=== PATIENT | female | born 1970 | race Caucasian/White ===

== ENCOUNTER 2016-07-01 21:08 | Emergency (ER) | payer OTHER ==
[~2016-07-01] VITALS: Ht 165.1 cm; Wt 83.9 kg
[2016-07-01 21:08] VITALS: BP 181/102; PULSE 84; RESP 20; TEMP 98.1; O2SAT 96
[~2016-07-01 21:08] MED LIST: ALBU8.5H8 INH; AMLO5TAB4 PO; ASPI325T2 PO; ASPI81TA2 PO; CAT.1 PO; CHOL100053 PO; CIPR-260 PO; DOXE10CA2 PO; ERGO500043 PO; GLIP10TA11 PO; GLIP5TAB13 PO; HYDR-1189 PO; HYDR-4100 PO; HYDR2TAB34 PO; HYG25 PO; IBUP-1480 PO; INSU100V26 SUBCUT; INSU100V32 SUBCUT; INSU100V9 SQ; INSU100V9 SUBCUT; LINA5TAB2 PO; LIP40 PO; LISI-600 PO; LISI10TA5 PO; LORA-258 PO; MELO-271 PO; METF-305 PO; METF1000 PO; METO100T PO; NITSL SL; NORT10CA PO; NPH,100V SUBCUT; ONDA4TAB22 PO; ONDA4TAB5 PO; POTA20TA34 PO; SIMV40TA2 PO; SITA100T7 PO; SITA50TA3 PO; TAMIFLU PO; VENL25TA4 PO; [UNRECOGNIZED DRUG - CODE] PO; atenolol
--- NOTE | 2016-07-01 21:08 | NUR ---
PT IN WAITING ROOM AWAITING AVAILABLE BED. STABLE.
--- NOTE | 2016-07-01 22:00 | NUR ---
Pt left ER stated "I feel fine' Patient left without being seen.
== END 2016-07-01 22:00 | disposition left against medical advice (07) ==
LOC: SED 21:08
DX: H93.8X1 Other specified disorders of right ear (principal); H53.8 Other visual disturbances; R51 Headache; Z53.21 Procedure and treatment not carried out due to patient leaving prior to being seen by health care provider

== ENCOUNTER 2016-10-04 23:37 | Emergency (ER) | payer OTHER ==
[~2016-10-04] VITALS: Ht 165.1 cm; Wt 83.9 kg
[~2016-10-04 23:37] MED LIST changes: -AMLO5TAB4 PO; -ASPI325T2 PO; -CHOL100053 PO; -CIPR-260 PO; -DOXE10CA2 PO; -GLIP5TAB13 PO; -HYDR-1189 PO; -HYDR2TAB34 PO; -HYG25 PO; -INSU100V26 SUBCUT; -INSU100V32 SUBCUT; -INSU100V9 SQ; -LISI10TA5 PO; -METF-305 PO; -NORT10CA PO; -ONDA4TAB22 PO; -SIMV40TA2 PO; -SITA100T7 PO; -SITA50TA3 PO; -TAMIFLU PO; -[UNRECOGNIZED DRUG - CODE] PO; -atenolol
[2016-10-04 23:56] VITALS: BP_SYST 172
--- NOTE | 2016-10-05 01:39 | NUR ---
Patient to ER bed 8 to gown for evaluation. Side rails up. Report given to SKY DHALIWAL.
--- NOTE | 2016-10-05 01:45 | NUR ---
Patient AAO x4, ambulated to bed, c/o left rib pain 06/19. Patient states she tripped and fell onto concrete and landed on a "corner" injurying her left ribs. Denies shortness of breath, Left ribs tender to palpation. Denies chest pain, no acute distress noted. Will continue to monitor.
--- NOTE | 2016-10-05 01:50 | NUR ---
ABELINO Kiser at bedside examining patient.
[2016-10-05] MEDS ORDERED: LORazepam 2 MG/ML VIAL (FOR ER USE) IM ONE (02:00)
[2016-10-05] MEDS ORDERED: KETOROLAC TROMETHAMINE 60 MG/2 ML VIAL IM ONE (02:00)
[2016-10-05] MEDS ORDERED: HYDROcodone/ACETAMIN 5-325 MG TAB (NORCO/ VICODIN) PO ONE (03:15)
[2016-10-05 03:45] VITALS: BP_SYST 130
--- NOTE | 2016-10-05 03:45 | NUR ---
Patient given written and verbal discharge instructions and verbalizes understanding. ER MD discussed with patient the results and treatment provided. Patient in stable condition. ID arm band removed. Rx of Tramdol given. Patient educated on pain management and to follow up with PMD. Pain Scale 4/10 tolerable by patient, patient requesting to go home. Opportunity for questions provided and answered.
== END 2016-10-05 03:45 | disposition home or self-care (01) ==
LOC: SED 23:37
DX: S20.212A Contusion of left front wall of thorax, initial encounter (principal); I10 Essential (primary) hypertension; E11.40 Type 2 diabetes mellitus with diabetic neuropathy, unspecified; G43.909 Migraine, unspecified, not intractable, without status migrainosus; J44.9 Chronic obstructive pulmonary disease, unspecified; Z86.73 Personal history of transient ischemic attack (TIA), and cerebral infarction without residual deficits; W19.XXXA Unspecified fall, initial encounter; Y93.89 Activity, other specified; Y92.89 Other specified places as the place of occurrence of the external cause; Y99.8 Other external cause status
CPT/HCPCS: 71100; 96372; 99284; J1885; J2060

== ENCOUNTER 2017-02-19 12:29 | Emergency (ER) | payer OTHER ==
[2017-02-19] MEDS ORDERED: NITROGLYCERIN 0.4 MG TAB.SUBL SL ONE (14:03)
[2017-02-19] MEDS ORDERED: ASPIRIN 325 MG TABLET ONE (14:03)
[2017-02-19] MEDS ORDERED: NITROGLYCERIN 1 INCH (GM) OINT. ONE (14:03)
[2017-02-19] MEDS ORDERED: ACETAMINOPHEN 325 MG TABLET ONE (14:11)
[2017-02-19] MEDS ORDERED: MORPHINE SULFATE 10 MG/ML VIAL ONE (18:11)
[2017-02-20 12:54] LABS: CALCIUM 8.8 mg/dL (8.4-11.0); CREATININE 0.71 mg/dL (0.55-1.30); POTASSIUM 3.9 mmol/L (3.5-5.1); TOTAL BILIRUBIN 0.7 mg/dL (0.0-1.0)
[2017-02-20 12:55] LABS: ALBUMIN 3.3 g/dL (3.4-4.8)
[2017-02-20 16:37] LABS: HEMATOCRIT 47.1 % (36-48); HEMOGLOBIN 15.6 g/dL (12.0-16.0); LYMPHOCYTES % (AUTO) 9.1 % (20.5-51.5); MEAN CORPUSCULAR HEMOGLOBIN 29 pg (27-31); MEAN CORPUSCULAR HGB CONC 33 % (32-36); MEAN CORPUSCULAR VOLUME 87 fL (79.0-98.0); NEUTROPHILS % (AUTO) 81.6 % (40.0-70.0); PLATELET COUNT (AUTO) 161 K/uL (130-430); RED BLOOD CELL COUNT(AUTO) 5.44 MIL/uL (4.2-6.2); RED CELL DISTRIBUTION WIDTH 11.9 % (9.0-15.0); WHITE BLOOD COUNT (AUTO) 9.4 K/uL (4.8-10.8)
[2017-02-20 16:38] LABS: BASOPHILS % (AUTO) 1.4 % (0.0-2.0); EOSINOPHILS # (AUTO) 0.1 K/uL (0.0-0.4); EOSINOPHILS % (AUTO) 1.1 % (0.0-4.0); LYMPHOCYTES # (AUTO) 0.9 K/uL (1.0-5.5); MONOCYTES # (AUTO) 0.6 K/uL (0.0-1.0); MONOCYTES % (AUTO) 6.8 % (1.7-9.3); NEUTROPHILS # (AUTO) 7.7 K/uL (1.8-7.7)
[2017-02-20 16:39] LABS: BASOPHILS # (AUTO) 0.1 K/uL (0.0-0.2)
== END 2017-02-19 21:01 | disposition short-term general hospital (02) ==
LOC: SED 12:29
DX: I21.4 Non-ST elevation (NSTEMI) myocardial infarction (principal); E11.65 Type 2 diabetes mellitus with hyperglycemia; I10 Essential (primary) hypertension; I16.0 Hypertensive urgency
CPT/HCPCS: 36415; 71045; 80053; 84484; 85025; 93005; 99291; J2270

== ENCOUNTER 2017-04-08 14:16 | Inpatient (IN) | payer OTHER ==
[~2017-04-08] VITALS: Ht 165.1 cm; Wt 81.0 kg
[2017-04-08 14:25] VITALS: BP_SYST 172
[2017-04-08] MEDS ORDERED: MORPHINE 4 MG/ML INJ. SYRINGE IVP ONE ×2 (14:30→15:45)
[2017-04-08] MEDS ORDERED: ONDANSETRON HCL 4 MG/2 ML VIAL IVP ONE ×2 (14:30→21:30)
[2017-04-08] MEDS ORDERED: KETOROLAC TROMETHAMINE 30 MG VIAL IVP ONE (14:30)
[2017-04-08] MEDS ORDERED: NACL 0.9% 1,000 ML IV ONE ×2 (15:00→16:30)
[2017-04-08 15:02] LABS: BASOPHILS # (AUTO) 0.2 K/uL (0.0-0.2); BASOPHILS % (AUTO) 2.3 % (0.0-2.0); EOSINOPHILS # (AUTO) 0.1 K/uL (0.0-0.4); EOSINOPHILS % (AUTO) 0.7 % (0.0-4.0); HEMATOCRIT 43.2 % (36-48); HEMOGLOBIN 14.3 g/dL (12.0-16.0); LYMPHOCYTES % (AUTO) 13.6 % (20.5-51.5); MEAN CORPUSCULAR HEMOGLOBIN 28 pg (27-31); MEAN CORPUSCULAR HGB CONC 33 % (32-36); MEAN CORPUSCULAR VOLUME 86 fL (79.0-98.0); MONOCYTES # (AUTO) 0.4 K/uL (0.0-1.0); NEUTROPHILS # (AUTO) 5.7 K/uL (1.8-7.7); NEUTROPHILS % (AUTO) 78.4 % (40.0-70.0); PLATELET COUNT (AUTO) 208 K/uL (130-430); RED BLOOD CELL COUNT(AUTO) 5.05 MIL/uL (4.2-6.2); RED CELL DISTRIBUTION WIDTH 12.3 % (9.0-15.0); WHITE BLOOD COUNT (AUTO) 7.4 K/uL (4.8-10.8)
[2017-04-08] MEDS ORDERED: ACETAMINOPHEN 500 MG TABLET PO ONE (15:15)
[2017-04-08 15:38] LABS: BILIRUBIN,URINE NEGATIVE (NEGATIVE); CLARITY/URINE SL HAZY (CLEAR); COLOR,URINE YELLOW (YELLOW); GLUCOSE,URINE 3+ (NEGATIVE); KETONES,URINE TRACE (NEGATIVE); LEUKOCYTE ESTERASE ,URINE NEGATIVE (NEGATIVE); NITRITE, URINE NEGATIVE (NEGATIVE); PH,URINE 6.5 (5.0-8.0); PROTEIN URINE 2+ (NEGATIVE)
[2017-04-08 15:50] LABS: CALCIUM 8.6 mg/dL (8.4-11.0); CREATININE 0.76 mg/dL (0.55-1.30); POTASSIUM 3.7 mmol/L (3.5-5.1)
[2017-04-08 15:53] LABS: BLOOD, URINE TRACE (NEGATIVE)
[2017-04-08 15:55] LABS: ALBUMIN 2.9 g/dL (3.4-4.8); TOTAL BILIRUBIN 0.6 mg/dL (0.0-1.0)
[2017-04-08 16:00] LABS: BACTERIA,URINE FEW /HPF (None Seen); WBC,URINE 20-50 /HPF (0-3)
[2017-04-08 16:01] LABS: FINE GRANULAR CASTS,URINE 0-10 /LPF (None Seen); MUCUS,URINE None Seen /LPF (None Seen)
[2017-04-08] MEDS ORDERED: cefTRIAXone 1 GM IVPB PREMIX 50 ML IV ONE ×2 (16:15→23:45)
[2017-04-08] MEDS ORDERED: DIPHENHYDRAMINE INJ 50 MG/ML VIAL IVP ONE (16:30)
[2017-04-08] MEDS ORDERED: NACL 0.9% 500 ML IV ONE (16:30)
[2017-04-08] MEDS ORDERED: INSULIN REGULAR, HUMAN 100 UNITS/ML, 10 ML VIAL (novoLIN R) IV PRN (16:30)
[2017-04-08] MEDS ORDERED: oxyCODONE HCL 10 MG TAB.ER.12H PO ONE (17:15)
[2017-04-08] MEDS ORDERED: MEPERIDINE HCL/PF 25 MG/ML DISP.SYRIN IM ONE (18:45)
[2017-04-08] MEDS ORDERED: AMLO2.5T2 PO (21:00)
[2017-04-08] MEDS ORDERED: METO-442 PO (21:00)
[2017-04-08] MEDS ORDERED: HYDR-4100 PO (21:00)
[2017-04-08] MEDS ORDERED: ONDANSETRON HCL 4 MG/2 ML VIAL ONE (21:28)
[2017-04-08 22:10] VITALS: BP_SYST 171
[2017-04-08] MEDS ORDERED: DEXTROSE 50% JECT 50 ML DISP.SYRIN IVP PRN (22:15)
[2017-04-08] MEDS ORDERED: HYDROcodone/ACETAMIN 10-325 MG TAB PO PRN (22:15)
[2017-04-08] MEDS: INSULIN REGULAR, HUMAN 100 UNITS/ML, 10 ML VIAL (novoLIN R) SUBCUT PRN (22:43)
[2017-04-08] MEDS ORDERED: ONDANSETRON HCL 4 MG/2 ML VIAL IVP PRN (23:00)
[2017-04-08] MEDS ORDERED: TAMSULOSIN HCL 0.4 MG CAP PO ONE (23:15)
[2017-04-08] MEDS ORDERED: cefTRIAXone 1 GM in D5W 50 ML IV ONE (23:30)
[2017-04-09] VITALS (7 sets, daily range): BP systolic 118–164
[2017-04-09] MEDS ORDERED: amLODIPine BESYLATE 10 MG TABLET PO ONE
[2017-04-09] MEDS ORDERED: METOPROLOL TARTRATE 50 MG TABLET PO ONE
[2017-04-09] MEDS: KETOROLAC TROMETHAMINE 15 MG VIAL IVP PRN ×2 (00:21→20:25)
[2017-04-09] MEDS: HYDROcodone/ACETAMIN 10-325 MG TAB PO PRN ×4 (03:33→17:55)
[2017-04-09] MEDS: DIPHENHYDRAMINE INJ 50 MG/ML VIAL IVP PRN ×3 (03:34→18:22)
[2017-04-09] MEDS: INSULIN REGULAR, HUMAN 100 UNITS/ML, 10 ML VIAL (novoLIN R) SUBCUT PRN ×4 (06:31→20:28)
[2017-04-09 06:59] LABS: BASOPHILS % (AUTO) 0.4 % (0.0-2.0); EOSINOPHILS % (AUTO) 0.4 % (0.0-4.0); HEMATOCRIT 38.8 % (36-48); HEMOGLOBIN 13.3 g/dL (12.0-16.0); LYMPHOCYTES # (AUTO) 1.4 K/uL (1.0-5.5); LYMPHOCYTES % (AUTO) 18.8 % (20.5-51.5); MEAN CORPUSCULAR HEMOGLOBIN 30 pg (27-31); MEAN CORPUSCULAR HGB CONC 34 % (32-36); MEAN CORPUSCULAR VOLUME 86 fL (79.0-98.0); MONOCYTES # (AUTO) 0.9 K/uL (0.0-1.0); MONOCYTES % (AUTO) 12.1 % (1.7-9.3); NEUTROPHILS # (AUTO) 5.1 K/uL (1.8-7.7); NEUTROPHILS % (AUTO) 68.3 % (40.0-70.0); PLATELET COUNT (AUTO) 182 K/uL (130-430); RED CELL DISTRIBUTION WIDTH 12.3 % (9.0-15.0); WHITE BLOOD COUNT (AUTO) 7.4 K/uL (4.8-10.8)
[2017-04-09 08:07] LABS: ALBUMIN 2.6 g/dL (3.4-4.8); CALCIUM 8.3 mg/dL (8.4-11.0); CREATININE 0.64 mg/dL (0.55-1.30); POTASSIUM 3.4 mmol/L (3.5-5.1); TOTAL BILIRUBIN 0.7 mg/dL (0.0-1.0)
[2017-04-09] MEDS: METOPROLOL TARTRATE 50 MG TABLET PO SCH ×2 (08:20→20:20)
[2017-04-09] MEDS: TAMSULOSIN HCL 0.4 MG CAP PO SCH ×2 (08:20→20:21)
[2017-04-09] MEDS: metFORMIN HCL 500 MG TABLET PO SCH ×2 (08:27→18:22)
[2017-04-09] MEDS ORDERED: LISINOPRIL 20 MG TABLET PO SCH (09:00)
[2017-04-09] MEDS ORDERED: ASPIRIN 81 MG TAB.CHEW PO SCH (09:00)
[2017-04-09] MEDS: amLODIPine BESYLATE 5 MG TABLET PO SCH ×2 (09:50→20:26)
[2017-04-09] MEDS ORDERED: POTASSIUM CHLORIDE 20 MEQ TAB.PRT.SR PO ONE (14:00)
[2017-04-09] MEDS ORDERED: cefTRIAXone 1 GM in D5W 50 ML IV SCH (21:00)
[2017-04-09] MEDS ORDERED: ATORVASTATIN 20 MG TABLET PO SCH (21:00)
[2017-04-09] MEDS ORDERED: INSULIN NPH 100 UNITS/ML 10 ML VIAL SUBCUT SCH (21:00)
[2017-04-09] MEDS ORDERED: ENOXAPARIN SODIUM 40 MG/0.4 ML SYRINGE SUBCUT SCH (21:00)
== END 2017-04-09 22:07 | disposition short-term general hospital (02) | DRG 872 ==
LOC: SED 14:16 → SMU 20:47
PROVIDERS: ADMIT Internal Medicine; ATTEND Internal Medicine
DX: A41.9 Sepsis, unspecified organism (principal); E44.0 Moderate protein-calorie malnutrition; E11.40 Type 2 diabetes mellitus with diabetic neuropathy, unspecified; N10 Acute pyelonephritis; I10 Essential (primary) hypertension; J44.9 Chronic obstructive pulmonary disease, unspecified; R19.09 Other intra-abdominal and pelvic swelling, mass and lump; E78.5 Hyperlipidemia, unspecified; Z79.4 Long term (current) use of insulin; Z87.442 Personal history of urinary calculi; Z90.710 Acquired absence of both cervix and uterus; Z88.8 Allergy status to other drugs, medicaments and biological substances; Z79.82 Long term (current) use of aspirin; Z79.899 Other long term (current) drug therapy; Z86.73 Personal history of transient ischemic attack (TIA), and cerebral infarction without residual deficits; Z68.29 Body mass index [BMI] 29.0-29.9, adult
CPT/HCPCS: 36415; 80053; 81000-TC; 82962; 83036; 83605; 83690-TC; 85025; 87040-TC; 87086; 87186-TC; 96361; 96365; 96375; 99285; J0696; J1200; J1650; J1815; J1885; J1956; J2175; J2270; J2405; J7030; J7040; J7060

== ENCOUNTER 2017-07-04 22:53 | Emergency (ER) | payer OTHER ==
[~2017-07-04] VITALS: Ht 165.1 cm; Wt 83.9 kg
[~2017-07-04 22:53] MED LIST changes: -ALBU8.5H8 INH; +AMLO2.5T2 PO; -CAT.1 PO; -ERGO500043 PO; -GLIP10TA11 PO; -IBUP-1480 PO; -INSU100V9 SUBCUT; -LINA5TAB2 PO; -LORA-258 PO; -MELO-271 PO; +METO-442 PO; -METO100T PO; -NITSL SL; -ONDA4TAB5 PO; -POTA20TA34 PO; -VENL25TA4 PO
[2017-07-04 22:57] VITALS: BP_SYST 209
[2017-07-04] MEDS ORDERED: NACL 0.9% 1,000 ML IV ONE (23:10)
[2017-07-04] MEDS ORDERED: KETOROLAC TROMETHAMINE 30 MG VIAL IVP ONE (23:15)
[2017-07-04 23:28] LABS: BILIRUBIN,URINE NEGATIVE (NEGATIVE); BLOOD, URINE NEGATIVE (NEGATIVE); CLARITY/URINE CLEAR (CLEAR); COLOR,URINE YELLOW (YELLOW); GLUCOSE,URINE 3+ (NEGATIVE); KETONES,URINE NEGATIVE (NEGATIVE); LEUKOCYTE ESTERASE ,URINE NEGATIVE (NEGATIVE); NITRITE, URINE NEGATIVE (NEGATIVE); PROTEIN URINE NEGATIVE (NEGATIVE); UROBILINOGEN,URINE 0.2 (0.2-1.0)
[2017-07-04 23:39] LABS: BACTERIA,URINE FEW /HPF (None Seen); RBC,URINE 0-3 /HPF (0-3); WBC,URINE 0-3 /HPF (0-3)
[2017-07-04] MEDS ORDERED: ONDANSETRON HCL 4 MG/2 ML VIAL IVP ONE (23:45)
[2017-07-04 23:46] LABS: BASOPHILS # (AUTO) 0.1 K/uL (0.0-0.2); BASOPHILS % (AUTO) 1.1 % (0.0-2.0); EOSINOPHILS # (AUTO) 0.3 K/uL (0.0-0.4); EOSINOPHILS % (AUTO) 3.1 % (0.0-4.0); HEMATOCRIT 43.4 % (36-48); HEMOGLOBIN 15.2 g/dL (12.0-16.0); LYMPHOCYTES # (AUTO) 3.6 K/uL (1.0-5.5); LYMPHOCYTES % (AUTO) 45.1 % (20.5-51.5); MEAN CORPUSCULAR HEMOGLOBIN 30 pg (27-31); MEAN CORPUSCULAR HGB CONC 35 % (32-36); MEAN CORPUSCULAR VOLUME 86 fL (79.0-98.0); MONOCYTES # (AUTO) 0.6 K/uL (0.0-1.0); MONOCYTES % (AUTO) 7.6 % (1.7-9.3); NEUTROPHILS # (AUTO) 3.6 K/uL (1.8-7.7); NEUTROPHILS % (AUTO) 43.1 % (40.0-70.0); PLATELET COUNT (AUTO) 179 K/uL (130-430); RED BLOOD CELL COUNT(AUTO) 5.07 MIL/uL (4.2-6.2); RED CELL DISTRIBUTION WIDTH 11.9 % (9.0-15.0); WHITE BLOOD COUNT (AUTO) 8.2 K/uL (4.8-10.8)
[2017-07-05] MEDS ORDERED: MORPHINE 4 MG/ML INJ. SYRINGE IVP ONE (00:45)
[2017-07-05 00:50] LABS: POTASSIUM 3.8 mmol/L (3.5-5.1)
[2017-07-05 00:51] LABS: CALCIUM 8.5 mg/dL (8.4-11.0); CREATININE 0.74 mg/dL (0.55-1.30)
[2017-07-05 00:56] LABS: ALBUMIN 3.1 g/dL (3.4-4.8); TOTAL BILIRUBIN 0.5 mg/dL (0.0-1.0)
[2017-07-05 01:30] VITALS: BP_SYST 163
== END 2017-07-05 01:30 | disposition home or self-care (01) ==
LOC: SED 22:53
DX: E11.65 Type 2 diabetes mellitus with hyperglycemia (principal); R10.9 Unspecified abdominal pain; J44.9 Chronic obstructive pulmonary disease, unspecified; I10 Essential (primary) hypertension; E11.40 Type 2 diabetes mellitus with diabetic neuropathy, unspecified; Z86.73 Personal history of transient ischemic attack (TIA), and cerebral infarction without residual deficits; Z87.442 Personal history of urinary calculi; Z79.82 Long term (current) use of aspirin; Z79.4 Long term (current) use of insulin; Z88.8 Allergy status to other drugs, medicaments and biological substances; Z79.899 Other long term (current) drug therapy; Z90.710 Acquired absence of both cervix and uterus
CPT/HCPCS: 36415; 74176; 80053; 81000; 81025; 85025; 96361; 96374; 96375; 99285; J1885; J2270; J2405; J7030

== ENCOUNTER 2018-03-24 19:43 | Emergency (ER) | payer OTHER ==
[~2018-03-24] VITALS: Ht 165.1 cm; Wt 79.4 kg
[~2018-03-24 19:43] MED LIST changes: +ASPI-1155 PO; -ASPI81TA2 PO
[2018-03-24 19:55] VITALS: BP_SYST 173
[2018-03-24] MEDS ORDERED: NOR10 PO (20:10)
[2018-03-24] MEDS ORDERED: LISI40TA4 PO (20:11)
[2018-03-24] MEDS ORDERED: METO-442 PO (20:12)
[2018-03-24] MEDS ORDERED: CHOL500037 PO (20:13)
[2018-03-24] MEDS ORDERED: POTA10TA15 PO (20:14)
[2018-03-24] MEDS ORDERED: NACL 0.9% 1,000 ML IV ONE (21:20)
[2018-03-24 21:30] LABS: BILIRUBIN,URINE NEGATIVE (NEGATIVE); BLOOD, URINE NEGATIVE (NEGATIVE); CLARITY/URINE CLEAR (CLEAR); COLOR,URINE YELLOW (YELLOW); GLUCOSE,URINE 3+ (NEGATIVE); KETONES,URINE NEGATIVE (NEGATIVE); LEUKOCYTE ESTERASE ,URINE NEGATIVE (NEGATIVE); NITRITE, URINE NEGATIVE (NEGATIVE); PH,URINE 6.5 (5.0-8.0); PROTEIN URINE NEGATIVE (NEGATIVE); UROBILINOGEN,URINE 0.2 (0.2-1.0)
[2018-03-24] MEDS ORDERED: KETOROLAC TROMETHAMINE 30 MG VIAL IVP ONE (21:30)
[2018-03-24] MEDS ORDERED: ONDANSETRON HCL 4 MG/2 ML VIAL IVP ONE (21:30)
[2018-03-24] MEDS ORDERED: DIPHENHYDRAMINE INJ 50 MG/ML VIAL IVP ONE ×2 (21:30→23:30)
[2018-03-24 21:35] LABS: BACTERIA,URINE FEW /HPF (None Seen); RBC,URINE 0-3 /HPF (0-3); WBC,URINE 0-3 /HPF (0-3)
[2018-03-24 21:53] LABS: CALCIUM 8.5 mg/dL (8.4-11.0); CREATININE 0.76 mg/dL (0.55-1.30); POTASSIUM 4.3 mmol/L (3.5-5.1)
[2018-03-24 21:54] LABS: ALBUMIN 3.1 g/dL (3.4-4.8); TOTAL BILIRUBIN 0.3 mg/dL (0.0-1.0)
[2018-03-24 21:55] LABS: HEMATOCRIT 42.3 % (36-48); HEMOGLOBIN 14.6 g/dL (12.0-16.0); MEAN CORPUSCULAR VOLUME 87 fL (79.0-98.0); RED BLOOD CELL COUNT(AUTO) 4.87 MIL/uL (4.2-6.2); WHITE BLOOD COUNT (AUTO) 8.8 K/uL (4.8-10.8)
[2018-03-24 21:56] LABS: MEAN CORPUSCULAR HEMOGLOBIN 30 pg (27-31); MEAN CORPUSCULAR HGB CONC 35 % (32-36); PLATELET COUNT (AUTO) 175 K/uL (130-430); RED CELL DISTRIBUTION WIDTH 12.9 % (9.0-15.0)
[2018-03-24 21:57] LABS: BASOPHILS # (AUTO) 0.1 K/uL (0.0-0.2); BASOPHILS % (AUTO) 1.1 % (0.0-2.0); EOSINOPHILS # (AUTO) 0.2 K/uL (0.0-0.4); EOSINOPHILS % (AUTO) 2.4 % (0.0-4.0); LYMPHOCYTES # (AUTO) 3.5 K/uL (1.0-5.5); LYMPHOCYTES % (AUTO) 39.6 % (20.5-51.5); MONOCYTES # (AUTO) 0.7 K/uL (0.0-1.0); MONOCYTES % (AUTO) 7.7 % (1.7-9.3); NEUTROPHILS # (AUTO) 4.3 K/uL (1.8-7.7); NEUTROPHILS % (AUTO) 49.2 % (40.0-70.0)
[2018-03-24] MEDS ORDERED: MORPHINE 4 MG/ML INJ. SYRINGE IVP ONE (23:30)
[2018-03-25] MEDS ORDERED: ONDANSETRON HCL 4 MG/2 ML VIAL IVP ONE (01:30)
[2018-03-25] MEDS ORDERED: MORPHINE 4 MG/ML INJ. SYRINGE IVP ONE (01:30)
[2018-03-25 02:15] VITALS: BP_SYST 136
== END 2018-03-25 02:15 | disposition home or self-care (01) ==
LOC: SED 19:43
DX: R10.31 Right lower quadrant pain (principal); E11.40 Type 2 diabetes mellitus with diabetic neuropathy, unspecified; J44.9 Chronic obstructive pulmonary disease, unspecified; I10 Essential (primary) hypertension; Z86.79 Personal history of other diseases of the circulatory system; Z86.73 Personal history of transient ischemic attack (TIA), and cerebral infarction without residual deficits; Z88.8 Allergy status to other drugs, medicaments and biological substances; Z79.82 Long term (current) use of aspirin; Z79.899 Other long term (current) drug therapy
CPT/HCPCS: 36415; 74176; 80053; 81000; 81025; 85025; 96374; 96375; 96376; 99284; J1200; J1885; J2270 ×2; J2405 ×2; J7030

== ENCOUNTER 2018-03-28 16:57 | Inpatient (IN) | payer OTHER ==
[~2018-03-28] VITALS: Ht 165.1 cm; Wt 79.4 kg
[~2018-03-28 16:57] MED LIST changes: -AMLO2.5T2 PO; +CHOL500037 PO; -LISI-600 PO; +LISI40TA4 PO; +NOR10 PO; +POTA10TA15 PO
[2018-03-28 17:05] VITALS: BP_SYST 186
[2018-03-28] MEDS ORDERED: NACL 0.9% 1,000 ML IV ONE (17:05)
[2018-03-28] MEDS ORDERED: MORPHINE 4 MG/ML INJ. SYRINGE IVP ONE (17:15)
[2018-03-28] MEDS ORDERED: ONDANSETRON HCL 4 MG/2 ML VIAL IVP ONE (17:15)
[2018-03-28] MEDS ORDERED: ASPIRIN 81 MG TAB.CHEW PO ONE (17:15)
[2018-03-28 17:45] LABS: BASOPHILS % (AUTO) 0.6 % (0.0-2.0); EOSINOPHILS # (AUTO) 0.2 K/uL (0.0-0.4); EOSINOPHILS % (AUTO) 2.6 % (0.0-4.0); HEMATOCRIT 44.9 % (36-48); HEMOGLOBIN 15.1 g/dL (12.0-16.0); LYMPHOCYTES % (AUTO) 29.4 % (20.5-51.5); MEAN CORPUSCULAR HEMOGLOBIN 29 pg (27-31); MEAN CORPUSCULAR HGB CONC 34 % (32-36); MEAN CORPUSCULAR VOLUME 87 fL (79.0-98.0); MONOCYTES # (AUTO) 0.5 K/uL (0.0-1.0); MONOCYTES % (AUTO) 7.7 % (1.7-9.3); NEUTROPHILS # (AUTO) 4.2 K/uL (1.8-7.7); NEUTROPHILS % (AUTO) 59.7 % (40.0-70.0); PLATELET COUNT (AUTO) 170 K/uL (130-430); RED BLOOD CELL COUNT(AUTO) 5.19 MIL/uL (4.2-6.2); RED CELL DISTRIBUTION WIDTH 12.4 % (9.0-15.0); WHITE BLOOD COUNT (AUTO) 6.9 K/uL (4.8-10.8)
[2018-03-28 17:46] LABS: CREATININE 0.85 mg/dL (0.55-1.30); POTASSIUM 3.8 mmol/L (3.5-5.1)
[2018-03-28 17:51] LABS: PROTHROMBIN TIME 10.5 SECS (9.5-12.5)
[2018-03-28 17:57] LABS: ALBUMIN 3.3 g/dL (3.4-4.8); TOTAL BILIRUBIN 0.5 mg/dL (0.0-1.0)
[2018-03-28] MEDS ORDERED: NACL 0.9% 2,000 ML IV ONE (18:00)
[2018-03-28] MEDS ORDERED: INSULIN REGULAR, HUMAN 10 UNITS/0.1 ML INJ IVP ONE (18:00)
[2018-03-28 18:01] LABS: BILIRUBIN,URINE NEGATIVE (NEGATIVE); BLOOD, URINE NEGATIVE (NEGATIVE); CLARITY/URINE CLEAR (CLEAR); COLOR,URINE YELLOW (YELLOW); GLUCOSE,URINE 3+ (NEGATIVE); KETONES,URINE NEGATIVE (NEGATIVE); LEUKOCYTE ESTERASE ,URINE NEGATIVE (NEGATIVE); NITRITE, URINE NEGATIVE (NEGATIVE); PROTEIN URINE NEGATIVE (NEGATIVE); UROBILINOGEN,URINE 0.2 (0.2-1.0)
[2018-03-28 18:06] LABS: CALCIUM 8.6 mg/dL (8.4-11.0)
[2018-03-28 18:25] LABS: BACTERIA,URINE FEW /HPF (None Seen); RBC,URINE NONE SEEN /HPF (0-3); WBC,URINE 0-3 /HPF (0-3)
[2018-03-28 18:26] LABS: MUCUS,URINE None Seen /LPF (None Seen); YEAST,URINE Few /HPF (None Seen)
[2018-03-28] MEDS ORDERED: DEXTROSE 50% JECT 50 ML DISP.SYRIN IVP PRN (19:15)
[2018-03-28] MEDS ORDERED: INSULIN LISPRO SLIDING SCALE 100 UNITS/ML VIAL (humaLOG) SUBCUT PRN (19:15)
[2018-03-28] MEDS ORDERED: cloNIDine HCL 0.1 MG TABLET PO ONE (19:30)
[2018-03-28] MEDS ORDERED: DOCUSATE SODIUM 100 MG CAPSULE PO PRN (19:30)
[2018-03-28] MEDS ORDERED: LORazepam 2 MG/ML VIAL IVP PRN (19:30)
[2018-03-28] MEDS ORDERED: HYDROcodone/ACETAMIN 7.5-325 MG TAB PO PRN (19:30)
[2018-03-28] MEDS ORDERED: ACETAMINOPHEN 325 MG TABLET PO PRN (19:30)
[2018-03-28] MEDS ORDERED: MILK OF MAGNESIA 30 ML UDC PO PRN (19:30)
[2018-03-28] MEDS ORDERED: ZOLPIDEM TARTRATE 5 MG TABLET PO PRN (19:30)
[2018-03-28] MEDS ORDERED: MUPIROCIN 2% TOPICAL OINTMENT 22 GM TP PRN (19:30)
[2018-03-28] MEDS ORDERED: NITROGLYCERIN 0.4 MG TAB.SUBL SL PRN (19:45)
[2018-03-28] MEDS ORDERED: cloNIDine HCL 0.1 MG TABLET PO PRN (19:45)
[2018-03-28 20:03] VITALS: BP_SYST 195
[2018-03-28 20:28] LABS: PHOSPHORUS 3.3 mg/dL (2.7-4.5); THYROID STIMULATING HORMONE 0.54 uIu/mL (0.34-4.82)
[2018-03-28 20:29] VITALS: BP_SYST 174
[2018-03-28 20:38] LABS: BARBITURATE, URINE NEGATIVE (NEG <=200); BENZODIAZEPINE, URINE NEGATIVE (NEG <=150); CANNABINOID, URINE NEGATIVE (NEG <=50); COCAINE, URINE NEGATIVE (NEG <=150); METHAMPHETAMINES SCREEN,URINE NEGATIVE (NEG <=500); OPIATE, URINE POSITIVE (NEG <=100); PHENCYCLIDINE SCREEN,URINE NEGATIVE (NEG <=25); UR TRICYCLIC ANTIDEPRESSANTS NEGATIVE (NEG <=300); URINE AMPHETAMINE NEGATIVE (NEG <=500); URINE METHADONE NEGATIVE (NEG <=200); URINE OXYCODONE SCREEN NEGATIVE (NEG <=100); URINE PROPOXYPHENE SCREEN NEGATIVE (NEG <=300)
[2018-03-28] MEDS ORDERED: METOPROLOL TARTRATE 25 MG TABLET PO SCH (21:00)
[2018-03-28] MEDS ORDERED: SIMVASTATIN 20 MG TABLET PO SCH (21:00)
[2018-03-28] MEDS: MORPHINE 4 MG/ML INJ. SYRINGE IVP PRN (21:14)
[2018-03-28] MEDS: ONDANSETRON HCL 4 MG/2 ML VIAL IVP PRN (21:21)
[2018-03-28] MEDS: NACL 0.9% 1,000 ML IV SCH (21:22)
[2018-03-28] MEDS: INSULIN ASPART 100 UNITS/ML, 10 ML VIAL (NovoLOG) SUBCUT PRN (22:19)
[2018-03-29 00:40] VITALS: BP_SYST 132
[2018-03-29] MEDS: ONDANSETRON HCL 4 MG/2 ML VIAL IVP PRN ×2 (01:24→21:31)
[2018-03-29] MEDS: MORPHINE 4 MG/ML INJ. SYRINGE IVP PRN ×6 (01:24→21:26)
[2018-03-29 04:12] LABS: BASOPHILS % (AUTO) 0.4 % (0.0-2.0); EOSINOPHILS # (AUTO) 0.2 K/uL (0.0-0.4); EOSINOPHILS % (AUTO) 2.8 % (0.0-4.0); HEMATOCRIT 39.6 % (36-48); HEMOGLOBIN 13.4 g/dL (12.0-16.0); LYMPHOCYTES % (AUTO) 43.4 % (20.5-51.5); MEAN CORPUSCULAR HEMOGLOBIN 29 pg (27-31); MEAN CORPUSCULAR HGB CONC 34 % (32-36); MEAN CORPUSCULAR VOLUME 87 fL (79.0-98.0); MONOCYTES # (AUTO) 0.6 K/uL (0.0-1.0); MONOCYTES % (AUTO) 9.2 % (1.7-9.3); NEUTROPHILS # (AUTO) 3.1 K/uL (1.8-7.7); NEUTROPHILS % (AUTO) 44.2 % (40.0-70.0); PLATELET COUNT (AUTO) 147 K/uL (130-430); RED BLOOD CELL COUNT(AUTO) 4.57 MIL/uL (4.2-6.2); RED CELL DISTRIBUTION WIDTH 12.4 % (9.0-15.0); WHITE BLOOD COUNT (AUTO) 6.9 K/uL (4.8-10.8)
[2018-03-29 04:16] LABS: CALCIUM 7.5 mg/dL (8.4-11.0); CREATININE 0.52 mg/dL (0.55-1.30)
[2018-03-29 04:25] LABS: PHOSPHORUS 2.9 mg/dL (2.7-4.5)
[2018-03-29] MEDS: NACL 0.9% 1,000 ML IV SCH ×2 (04:54→15:05)
[2018-03-29] MEDS: INSULIN ASPART 100 UNITS/ML, 10 ML VIAL (NovoLOG) SUBCUT PRN ×4 (06:07→20:53)
[2018-03-29 08:12] VITALS: BP_SYST 146
[2018-03-29] MEDS ORDERED: amLODIPine BESYLATE 10 MG TABLET PO SCH (09:00)
[2018-03-29] MEDS ORDERED: ASPIRIN 81 MG TAB.CHEW PO SCH (09:00)
[2018-03-29] MEDS ORDERED: LISINOPRIL 10 MG TABLET (PRINIVIL) PO SCH (09:00)
[2018-03-29] MEDS ORDERED: LISINOPRIL 20 MG TABLET PO SCH (09:00)
[2018-03-29] MEDS: METOPROLOL TARTRATE 50 MG TABLET PO SCH ×2 (09:11→20:45)
[2018-03-29 11:35] VITALS: BP_SYST 129
[2018-03-29 15:45] VITALS: BP_SYST 149
[2018-03-29 19:45] VITALS: BP_SYST 142
[2018-03-29 20:00] VITALS: BP_SYST 142
[2018-03-29] MEDS ORDERED: ATORVASTATIN 20 MG TABLET PO SCH (21:00)
[2018-03-30] MEDS: MORPHINE 4 MG/ML INJ. SYRINGE IVP PRN (00:51)
== END 2018-03-30 01:05 | disposition short-term general hospital (02) | DRG 693 ==
LOC: SED 16:57 → STU 19:16
PROVIDERS: ADMIT Family Medicine; ATTEND Family Medicine
DX: N23 Unspecified renal colic (principal); I21.A1 Myocardial infarction type 2; E87.1 Hypo-osmolality and hyponatremia; F41.9 Anxiety disorder, unspecified; I10 Essential (primary) hypertension; J44.9 Chronic obstructive pulmonary disease, unspecified; E11.40 Type 2 diabetes mellitus with diabetic neuropathy, unspecified; I25.10 Atherosclerotic heart disease of native coronary artery without angina pectoris; G43.909 Migraine, unspecified, not intractable, without status migrainosus; Z79.4 Long term (current) use of insulin; Z87.442 Personal history of urinary calculi; Z90.710 Acquired absence of both cervix and uterus; Z88.9 Allergy status to unspecified drugs, medicaments and biological substances; Z86.73 Personal history of transient ischemic attack (TIA), and cerebral infarction without residual deficits; E78.5 Hyperlipidemia, unspecified; I45.10 Unspecified right bundle-branch block
CPT/HCPCS: 36415; 71045; 80048; 80053; 80061; 80307; 81000-TC; 82150-TC; 82550-TC; 82962; 83036; 83605; 83690-TC; 83735-TC; 83880; 84100-TC; 84443-TC; 84484; 85025; 85610-TC; 85730-TC; 87040-TC; 93005; 96361; 96374; 96375; 99285; G0378; J1815; J2060; J2270; J2405; J7030

== ENCOUNTER 2019-02-24 19:18 | Emergency (ER) | payer MEDICAID, OTHER ==
[~2019-02-24] VITALS: Ht 172.7 cm; Wt 93.0 kg
[2019-02-24 19:21] VITALS: BP_SYST 134
--- NOTE | 2019-02-24 19:25 | NUR ---
Patient triaged and placed on ems gurney. VSS and patient appears in no acute distress at this time. Accompanied by ems, awaiting available bed, and MD notified of need for MSE.
--- NOTE | 2019-02-24 19:26 | NUR ---
Blood sugar 288 upon arrival
--- NOTE | 2019-02-24 19:47 | NUR ---
Placed in room 8 . Placed on catering sous chef, blood pressure machine and pulse oximeter. To gown for exam. Side rails up. Report given to RONALD SWANSON.
--- NOTE | 2019-02-24 19:55 | NUR ---
Pt BIBA w/ c/o of hyper glycemia. Pt BS 288 upon arrival. Pt AAO, but confused at the time, doesnt remeber what happened prior to coming to hospital. Pt has Hx of DM, HTN, CVA w/ mild rt sided weakness, and hyperlipidemia. Pt also has splint on lt wrist. Pt staes she broke her wrist in Nov. of last year. No pain at this time. No fever, N/V, Pt is now more AAO. Will continue to monitor.
[2019-02-24 20:15] LABS: BASOPHILS % (AUTO) 0.4 % (0.0-2.0); EOSINOPHILS # (AUTO) 0.2 K/uL (0.0-0.4); EOSINOPHILS % (AUTO) 1.9 % (0.0-4.0); HEMATOCRIT 40.1 % (36-48); LYMPHOCYTES % (AUTO) 33.9 % (20.5-51.5); MEAN CORPUSCULAR HEMOGLOBIN 31 pg (27-31); MEAN CORPUSCULAR HGB CONC 35 % (32-36); MEAN CORPUSCULAR VOLUME 89 fL (79.0-98.0); MONOCYTES % (AUTO) 8.1 % (1.7-9.3); NEUTROPHILS # (AUTO) 6.5 K/uL (1.8-7.7); NEUTROPHILS % (AUTO) 55.7 % (40.0-70.0); PLATELET COUNT (AUTO) 212 K/uL (130-430); RED BLOOD CELL COUNT(AUTO) 4.49 MIL/uL (4.2-6.2); RED CELL DISTRIBUTION WIDTH 13.7 % (9.0-15.0); WHITE BLOOD COUNT (AUTO) 11.7 K/uL (4.8-10.8)
[2019-02-24 20:21] LABS: CALCIUM 8.6 mg/dL (8.4-11.0); CREATININE 0.95 mg/dL (0.55-1.30)
[2019-02-24 20:26] LABS: ALBUMIN 3.1 g/dL (3.4-4.8); POTASSIUM 3.4 mmol/L (3.5-5.1); TOTAL BILIRUBIN 0.3 mg/dL (0.0-1.0)
--- NOTE | 2019-02-24 20:35 | NUR ---
Dr. Zuniga at bedside examining Pt.
[2019-02-24 21:05] VITALS: BP_SYST 130
--- NOTE | 2019-02-24 21:05 | NUR ---
Patient given written and verbal discharge instructions and verbalizes understanding. ER MD discussed with patient the results and treatment provided. Patient in stable condition. ID arm band removed. Patient educated on pain management and to follow up with PMD. Pain Scale 0/10. Opportunity for questions provided and answered. Medication side effect fact sheet provided.
== END 2019-02-24 21:05 | disposition home or self-care (01) ==
LOC: SED 19:18
DX: E11.65 Type 2 diabetes mellitus with hyperglycemia (principal); R41.0 Disorientation, unspecified; J44.9 Chronic obstructive pulmonary disease, unspecified; I10 Essential (primary) hypertension; Z88.8 Allergy status to other drugs, medicaments and biological substances; Z79.82 Long term (current) use of aspirin; Z79.4 Long term (current) use of insulin; Z79.899 Other long term (current) drug therapy
CPT/HCPCS: 36415; 80053; 82962; 85025; 99283